=== PATIENT | male | born 1975 | race Caucasian/White ===

== ENCOUNTER 2019-02-19 10:02 | Emergency (ER) | payer MEDICAID ==
[~2019-02-19] VITALS: Ht 167.6 cm; Wt 93.0 kg
[2019-02-19 10:12] VITALS: Ht 167.6 cm; Wt 93.0 kg
[2019-02-19] MEDS ORDERED: FAMOTIDINE 20 MG INJ IV STA (10:51)
[2019-02-19] MEDS ORDERED: ONDANSETRON 4 MG INJ IV STA (10:51)
--- NOTE | 2019-02-19 10:57 | ERD ---
ER Documentation Chief Complaint Chief Complaint Complains of abdominal x 2 days HPI 33-year-old male amatory to the ED for evaluation of abdominal pain. Patient states he awoke this morning with moderate to severe, nonradiating crampy and achy epigastric pain with subsequent nausea and 6 episodes of vomiting with hematemesis. Denies hematochezia or melanotic stools although a month ago he had several days of melena. Denies diarrhea or constipation. No chest pain, palpitations or shortness of breath. No night sweats or weight loss. No relieving or exacerbating factors. No fevers or chills. ROS All systems reviewed and are negative except as per history of present illness. Medications Home Meds Active Scripts Ondansetron Hcl* (Zofran*) 4 Mg Tablet, 4 MG PO Q6H for NAUSEA AND/OR VOMITING, #12 TAB Prov:AJAY CARRILLO MD 02/19/19 Famotidine* (Pepcid*) 20 Mg Tablet, 20 MG PO BID for 10 Days, TAB Prov:AJAY CARRILLO MD 02/19/19 Reported Medications Omeprazole* (Omeprazole*) Unknown Strength Capsule.dr, 1 CAP PO NEEDED, #30 CAP 02/19/19 Discontinued Reported Medications [None] No Conflict Check 10/03/09 Allergies Allergies: Coded Allergies: No Known Drug Allergy (Verified Allergy, Mild, 02/19/19) PMhx/Soc Reviewed in chart. As per HPI. History of Surgery: Yes (Leg) Anesthesia Reaction: No Hx Neurological Disorder: No Hx Respiratory Disorders: No Hx Cardiac Disorders: No Hx Psychiatric Problems: No Hx Miscellaneous Medical Probl: No Hx Alcohol Use: No Hx Substance Use: Yes (Marijuana) Hx Tobacco Use: No FmHx No cancer coronary artery disease. Mother: Diabetes. Physical Exam Vitals Vital Signs Date Temp Pulse Resp B/P (MAP) Pulse Ox O2 O2 Flow FiO2 Time Delivery Rate 02/19/19 52 18 119/88 99 Room Air 11:48 (98) 02/19/19 97.9 66 20 129/76 97 10:12 (93) Physical Exam Const: Anxious but in no acute distress. Head: Atraumatic Eyes: Normal Conjunctiva ENT: Normal External Ears, Nose and Mouth. Neck: Full range of motion. No meningismus. Resp: Clear to auscultation bilaterally Cardio: Regular rate and rhythm, no murmurs Abd: Soft, non tender, non distended. Normal bowel sounds. No rebound or guarding. No masses or abnormal pulsations. Rectal exam: Deferred as per patient. Skin: No petechiae or rashes Back: No midline or flank tenderness Ext: No cyanosis, or edema Neur: Awake and alert Psych: Anxious but not depressed. Result Diagram: 02/19/19 1100 02/19/19 1100 Results 24 hrs Laboratory Tests Test 02/19/19 11:00 White Blood Count 9.2 10^3/ul Red Blood Count 4.31 10^6/ul Hemoglobin 13.2 g/dl Hematocrit 40.2 % Mean Corpuscular Volume 93.3 fl Mean Corpuscular Hemoglobin 30.6 pg Mean Corpuscular Hemoglobin Concent 32.8 g/dl Red Cell Distribution Width 13.2 % Platelet Count 324 10^3/UL Mean Platelet Volume 10.6 fl Immature Granulocytes % 0.400 % Neutrophils % 66.8 % Lymphocytes % 22.7 % Monocytes % 6.9 % Eosinophils % 2.5 % Basophils % 0.7 % Nucleated Red Blood Cells % 0.0 /100WBC Immature Granulocytes # 0.040 10^3/ul Neutrophils # 6.1 10^3/ul Lymphocytes # 2.1 10^3/ul Monocytes # 0.6 10^3/ul Eosinophils # 0.2 10^3/ul Basophils # 0.1 10^3/ul Nucleated Red Blood Cells # 0.0 10^3/ul Prothrombin Time 12.6 Sec Prothrombin Time Ratio 1.0 INR International Normalized Ratio 0.93 Activated Partial Thromboplast Time 31.5 Sec Sodium Level 141 mmol/L Potassium Level 4.6 mmol/L Chloride Level 105 mmol/L Carbon Dioxide Level 29 mmol/L Anion Gap 7 Blood Urea Nitrogen 20 mg/dl Creatinine 0.75 mg/dl Est Glomerular Filtrat Rate mL/min > 60 mL/min Glucose Level 94 mg/dl Calcium Level 9.0 mg/dl Total Bilirubin 0.4 mg/dl Direct Bilirubin 0.00 mg/dl Indirect Bilirubin 0.4 mg/dl Aspartate Amino Transf (AST/SGOT) 28 IU/L Alanine Aminotransferase (ALT/SGPT) 25 IU/L Alkaline Phosphatase 98 IU/L Total Protein 7.2 g/dl Albumin 4.1 g/dl Globulin 3.10 g/dl Albumin/Globulin Ratio 1.32 Lipase 34 U/L Current Medications Medications Dose Sig/Mathieu Start Time Status Last (Trade) Ordered Route PRN Stop Time Admin Dose Reason Admin Famotidine 20 mg ONCE STAT 02/19/19 DC 02/19/19 (Pepcid Iv) IV 10:51 02/19/19 11:09 10:53 Ondansetron 4 mg ONCE STAT 02/19/19 DC 02/19/19 HCl (Zofran IV 10:51 02/19/19 11:09 Inj) 10:53 Procedures/MDM DOCUMENTS REVIEWED: ED nurse, prior records LAB INTERPRETATION: CBC to evaluate for anemia, leukocytosis and thrombocytopenia is unremarkable. Chemistry is negative for electrolyte abnormalities, renal insufficiency and hyperglycemia. Liver function test revealed no evidence of hyperbilirubinemia or transaminitis. Lipase is not elevated. IMAGING: Chest AP portal. The cardiac silhouette is normal. The costophrenic angles are clear. No effusions or infiltrates. No mediastinal widening. No abnormalities or bony thorax. My interpretation. OBSERVATION NOTE: At 11:05 the patient was entered into observation status to establish the need for admission. During this time the patient was treated for acute epigastric abdominal pain and upper GI bleeding. Additionally, extensive evaluation including, CBC, Chemistry, Urinalysis and CXR were preformed with r esults interpreted as above. Vitals signs were monitored and multiple, frequent reexaminations were performed. At 14:10 the patient was reexamined; VSS, afebrile, pain resolved and tolerating PO's. Based on these findings the patient was discharged from observation as it was determined that the patient was improved and met criteria for discharge. TOTAL OBSERVATION TIME: 3 hours. REEXAMINATION/REEVALUATION: Time: 14:05. Asymptomatic. Abdomen soft nontender. No nausea or vomiting. Tolerating PO's. MEDICAL DECISION MAKIN-year-old male amatory to the ED for evaluation of abdominal pain and hematemesis. Labs unremarkable for anemia, renal insufficiency or electrolyte abnormalities. Abdominal exam is benign without significant tenderness, rebound, guarding or signs of peritonitis hence advanced imaging is not indicated. History of hematemesis but without significant anemia hemodynamically stable. Symptoms consistent with gastritis/GERD although a small Diane Sainz tear is not ruled out. No evidence of esophageal perforation or Boerhaave's. An occult malignancy is possible. Stable for discharge with precautionary instructions, strict return instructions if symptoms recur and mandatory, urgent outpatient follow-up as counseled. Blood Pressure Assessment: Patient's blood pressure was elevated (>120/80) but appears stable without evidence of hypertension emergency or urgency. The patient was counseled about the risks of hypertension and urged to pursue outpa tient monitoring and therapy within a week with their primary care physician. Counseled patient regarding diagnosis and diagnostic results. Understands that the etiology of his symptoms are not established and urgent, outpatient follow- up or return to the ED immediately if symptoms recur is mandatory. Departure Diagnosis: Primary Impression: Abdominal pain, acute, epigastric Additional Impressions: Hematemesis Nausea presence: with nausea Qualified Codes: K92.0 - Hematemesis Acute gastritis with bleeding Gastritis type: unspecified gastritis Qualified Codes: K29.01 - Acute gastritis with bleeding Condition: Stable AJAY CARRILLO MD February 19, 2019 10:57
[2019-02-19] MEDS ORDERED: OMEP20CA16 PO (11:15)
[2019-02-19 11:48] VITALS: BP 119/88; PULSE 52; RESP 18
[2019-02-19] MEDS ORDERED: ONDA4TAB8 PO (14:18)
[2019-02-19] MEDS ORDERED: FAMO-96 PO (14:18)
== END 2019-02-19 16:39 | disposition home or self-care (01) ==
LOC: E/R 10:02
DX: K92.0 Hematemesis (principal); K29.01 Acute gastritis with bleeding
CPT/HCPCS: 36415; 71045; 80053; 83690; 85025; 85610; 85730; 86850; 86900; 86901; 96374; 96375; J2405; Z7502; Z7610

== ENCOUNTER 2019-04-02 11:04 | Emergency (ER) | payer MEDICAID ==
[~2019-04-02] VITALS: Ht 167.6 cm; Wt 89.9 kg
[~2019-04-02 11:04] MED LIST: FAMO-96 PO; OMEP20CA16 PO; ONDA4TAB8 PO
[2019-04-02 11:18] VITALS: BP 131/60; PULSE 60; RESP 18; Ht 167.6 cm; Wt 89.9 kg
[2019-04-02] MEDS ORDERED: FAMOTIDINE 20 MG TAB PO ONE (12:30)
[2019-04-02] MEDS ORDERED: FAMO-96 PO (13:25)
--- NOTE | 2019-04-02 13:36 | ERD ---
ER Documentation Chief Complaint Chief Complaint vomiting blood x once this am HPI This is a 43-year-old male patient who presents emergency room with complaint of bright red blood in vomitus this morning x1. Denies abdominal pain, reports black stools, no fevers. States he was seen at this ER 2 months ago for the same reason, has endoscopy scheduled in 4 days. Has not been compliant with his famotidine. Reports alcohol use 3 days ago and has had bilious vomiting every morning with blood-tinged vomitus this morning. States he has a lot of stress in his life which may be contributing to his symptoms. Patient declines to talk to social media community manager today. No SI/HI ROS All systems reviewed and are negative except as per history of present illness. Medications Home Meds Active Scripts Famotidine* (Pepcid*) 20 Mg Tablet, 20 MG PO BID for gerd for 30 Days, #60 TAB Prov:DEBROAH ROSEN NP 04/02/19 Ondansetron Hcl* (Zofran*) 4 Mg Tablet, 4 MG PO Q6H for NAUSEA AND/OR VOMITING, #12 TAB Prov:AJAY CARRILLO MD 02/19/19 Famotidine* (Pepcid*) 20 Mg Tablet, 20 MG PO BID for 10 Days, TAB Prov:AJAY CARRILLO MD 02/19/19 Reported Medications Omeprazole* (Omeprazole*) Unknown Strength Capsule., 1 CAP PO NEEDED, #30 CAP 02/19/19 Allergies Allergies: Coded Allergies: No Known Drug Allergy (Verified Allergy, Mild, 02/19/19) PMhx/Soc History of Surgery: Yes (Leg) Anesthesia Reaction: No Hx Neurological Disorder: No Hx Respiratory Disorders: No Hx Cardiac Disorders: No Hx Psychiatric Problems: No Hx Miscellaneous Medical Probl: No Hx Alcohol Use: No Hx Substance Use: No Hx Tobacco Use: No Smoking Status: Never smoker FmHx Family History: No diabetes, No coronary disease, No other Physical Exam Vitals Vital Signs Date Temp Pulse Resp B/P (MAP) Pulse Ox O2 O2 Flow FiO2 Time Delivery Rate 04/02/19 98.3 60 18 131/60 98 11:18 (83) Physical Exam Const: No acute distress Head: Atraumatic Eyes: Normal Conjunctiva, PERRL ENT: Normal External Ears, Nose and Mouth. Pharynx pink, moist, no lesions, no exudate, no petechiae. Neck: Full range of motion. No meningismus. No lymphadenopathy Resp: Clear to auscultation bilaterally, wheezing Cardio: Regular rate and rhythm, no murmurs Abd: Soft, non tender, non distended. Normal bowel sounds. Hepato-or splenomegaly. No epigastric tenderness. No bruising. Skin: No petechiae or rashes Back: No midline or flank tenderness Ext: No cyanosis, or edema Neur: Awake and alert Psych: Normal Mood and Affect Result Diagram: 04/02/19 1232 04/02/19 1232 Results 24 hrs Laboratory Tests Test 04/02/19 12:32 White Blood Count 9.9 10^3/ul Red Blood Count 4.68 10^6/ul Hemoglobin 14.2 g/dl Hematocrit 43.7 % Mean Corpuscular Volume 93.4 fl Mean Corpuscular Hemoglobin 30.3 pg Mean Corpuscular Hemoglobin Concent 32.5 g/dl Red Cell Distribution Width 13.1 % Platelet Count 315 10^3/UL Mean Platelet Volume 10.4 fl Immature Granulocytes % 0.400 % Neutrophils % 69.2 % Lymphocytes % 22.9 % Monocytes % 5.6 % Eosinophils % 1.4 % Basophils % 0.5 % Nucleated Red Blood Cells % 0.0 /100WBC Immature Granulocytes # 0.040 10^3/ul Neutrophils # 6.9 10^3/ul Lymphocytes # 2.3 10^3/ul Monocytes # 0.6 10^3/ul Eosinophils # 0.1 10^3/ul Basophils # 0.1 10^3/ul Nucleated Red Blood Cells # 0.0 10^3/ul Sodium Level 142 mmol/L Potassium Level 4.4 mmol/L Chloride Level 105 mmol/L Carbon Dioxide Level 28 mmol/L Anion Gap 9 Blood Urea Nitrogen 12 mg/dl Creatinine 0.79 mg/dl Est Glomerular Filtrat Rate mL/min > 60 mL/min Glucose Level 91 mg/dl Calcium Level 9.4 mg/dl Total Bilirubin 0.4 mg/dl Direct Bilirubin 0.00 mg/dl Indirect Bilirubin 0.4 mg/dl Aspartate Amino Transf (AST/SGOT) 21 IU/L Alanine Aminotransferase (ALT/SGPT) 17 IU/L Alkaline Phosphatase 84 IU/L Total Protein 7.9 g/dl Albumin 4.3 g/dl Globulin 3.60 g/dl Albumin/Globulin Ratio 1.19 Current Medications Medications Dose Sig/Mathieu Start Time Status Last (Trade) Ordered Route PRN Stop Time Admin Dose Reason Admin Famotidine 20 mg ONCE ONCE 04/02/19 DC 04/02/19 (Pepcid) PO 12:30 12:30 04/02/19 12:31 Procedures/MDM This is a 43-year-old male patient who presents to emergency room with complaint of blood-tinged bilious vomiting this morning x1. ED COURSE: The patient was stable throughout ED course. DIAGNOSTIC IMAGING: Not indicated at this time PROCEDURES: None. MEDICATIONS GIVEN: Famotidine Patient tolerated medication well with no adverse reactions. MDM: CBC: no e/o of systemic infection or severe anemia CMP: no e/o severe acidosis, alkalosis, renal failure, diabetic ketoacidosis, liver disease The patient presents with bilious, blood-tinged vomiting x1. There is no sign of peritonitis or other life-threatening or serious etiology. The patient appears stable for discharge and has been instructed to return immediately if the symptoms worsen in any way. The patient has appointment for endoscopy in 4 days. Patient has been instructed on taking famotidine twice daily, Zofran as needed, and diet appropriate for acid reflux. The patient has been instructed to return if the symptoms worsen or change in any way. DISPOSITION: The patient has been discharge home to follow-up with community physician. Departure Diagnosis: Primary Impression: Hematemesis Additional Impression: Bilious vomiting Condition: Stable Patient Instructions: Gerd (Adult) Referrals: [facility] YOU HAVE RECEIVED A MEDICAL SCREENING EXAM AND THE RESULTS INDICATE THAT YOU DO NOT HAVE A CONDITION THAT REQUIRES URGENT TREATMENT IN THE EMERGENCY DEPARTMENT. FURTHER EVALUATION AND TREATMENT OF YOUR CONDITION CAN WAIT UNTIL YOU ARE SEEN IN YOUR DOCTORS OFFICE WITHIN THE NEXT 1-2 DAYS. IT IS YOUR RESPONSIBILITY TO MAKE AN APPOINTMENT FOR FOLOW-UP CARE. IF YOU HAVE A PRIMARY DOCTOR --you should call your primary doctor and schedule an appointment IF YOU DO NOT HAVE A PRIMARY DOCTOR YOU CAN CALL OUR PHYSICIAN REFERRAL HOTLINE AT IF YOU CAN NOT AFFORD TO SEE A PHYSICIAN YOU CAN CHOSE FROM THE FOLLOWING [facility] [address] [facility]. [facility] [address] [facility] [address] [facility]. [facility] [address] [facility]. [facility] [address] [facility]. [facility]. [address] Additional Instructions: Thank you very much for allowing us to participate in your care. Your health and safety is our top priority at [facility]. Call your primary care doctor TOMORROW for an appointment during the next 2-4 days and bring all the information and medications prescribed. KEEP YOUR APPOINTMENT ON SATURDAY FOR ENDOSCOPY!! TAKE FAMOTIDINE TWICE DAILY, ONCE IN THE MORNING, ONCE IN THE EVENING! AVOID CAFFEINE, ALCOHOL, TOBACCO, SPICY FOODS Have prescriptions filled and follow precisely the directions on the label. If the symptoms get worse and your provider is unavailable, return to the [facility] Department immediately. DEBORAH ROSEN NP Apr 02, 2019 13:36
== END 2019-04-02 13:49 | disposition home or self-care (01) ==
LOC: FTE 11:04
DX: K92.0 Hematemesis (principal)
CPT/HCPCS: 80053; 85025; Z7502; Z7610; 99283